=== PATIENT | female | born 1995 | race Caucasian/White ===

== ENCOUNTER 2023-05-13 16:36 | Emergency (ER) | payer OTHER | END 2023-05-13 18:11 | disposition home or self-care (01) | LOC: JP.ED 16:36 | DX: S76.312A Strain of muscle, fascia and tendon of the posterior muscle group at thigh level, left thigh, initial encounter (principal); J45.909 Unspecified asthma, uncomplicated; X50.9XXA Other and unspecified overexertion or strenuous movements or postures, initial encounter | CPT/HCPCS: 99283 ==